=== PATIENT | male | born 2000 | race Caucasian/White ===

== ENCOUNTER 2022-07-10 02:56 | Emergency (ER) | payer BC ==
[2022-07-10] MEDS ORDERED: NAPROXEN250 MG PO (03:45)
== END 2022-07-10 03:50 | disposition home or self-care (01) ==
LOC: ED 02:56
DX: S06.0X0A Concussion without loss of consciousness, initial encounter (principal); S00.93XA Contusion of unspecified part of head, initial encounter; S60.221A Contusion of right hand, initial encounter; W22.8XXA Striking against or struck by other objects, initial encounter; Y93.89 Activity, other specified; Y92.89 Other specified places as the place of occurrence of the external cause; Y99.8 Other external cause status